=== PATIENT | male | born 1985 | race African-American/Black ===

== ENCOUNTER 2020-12-14 08:00 | Outpatient (CLI) | payer OTHER | END 2020-12-14 23:59 | LOC: LAB.N 08:00 | PROVIDERS: ATTEND Family Medicine | DX: R05.9 Cough, unspecified (principal); Z20.822 Contact with and (suspected) exposure to COVID-19 ==

== ENCOUNTER 2020-12-14 08:00 | Outpatient (CLI) | payer OTHER | END 2020-12-14 23:59 | LOC: LAB.N 08:00 | PROVIDERS: ATTEND Family Medicine | DX: R07.0 Pain in throat (principal); R05.9 Cough, unspecified; Z20.822 Contact with and (suspected) exposure to COVID-19 | CPT/HCPCS: 87070 ==